=== PATIENT | male | born 1960 | race Caucasian/White ===

== ENCOUNTER 2019-04-15 18:50 | Emergency (ER) | payer OTHER ==
--- OUTSIDE RECORDS SUMMARY | 2019-04-15 18:59 | XMS REPORT | Continuity of Care Document ---
:1960 External Reference #:[id number] Author Name Tanner Lewis M.D. (transmitted by agent of provider Lisa Smart) Address [address] [address] Care Team Providers Name Role Phone Elijah Haile MD - Family Medicine Care Team Information Physicist Astrophysics Mario Fernandez MD - Interventional Care Team Information Physicist Astrophysics [phone] Cardiology Problems Active Problems Provider Date Coronary arteriosclerosis Tanner Lewis M.D. Onset: 07/12/2011 Chest pain Tanner Lewis M.D. Onset: 07/12/2011 Pure hypercholesterolemia Tanner Lewis M.D. Onset: 07/12/2011 Coronary arteriosclerosis Tanner Lewis M.D. Onset: 07/12/2011 Gastroesophageal reflux disease Tanner Lewis M.D. Onset: 05/10/2013 Pure hypercholesterolemia Tanner Lewis M.D. Onset: 03/05/2015 Carpal tunnel syndrome of right wrist [facility] [place] Onset: 01/02/2016 Snoring Kaylee Gao DNP, RN, Onset: 11/03/2016 [facility] Malaise and fatigue Kaylee Gao DNP, RN, Onset: 11/03/2016 [facility] Social History Type Date Description Comments Sex Unknown Tobacco Use Start: Unknown End: Former Cigarette Smoker Unknown Smoking Status Reviewed: 03/26/19 Former Cigarette Smoker ETOH Use Occasionally consumes beer Tobacco Use Start: Unknown End: Patient is a former quit in 1984, Unknown smoker smoked for 13 years 1 ppd Recreational Drug Use Denies Drug Use Exercise Type/Frequency Exercises sporadically Allergies, Adverse Reactions, Alerts Active Allergies Reaction Severity Comments Date Vytorin fatigue, muscle aches 04/15/2011 Niaspan flushing 04/15/2011 Lipitor fatigue, muscle aches. 04/15/2011 Tolerates low dose Keystone whole kernel corn 05/10/2013 Augmentin Nausea and Vomiting, per patient 04/30/2015 diarrhea, headache Rosuvastatin Calcium fatigue and muscle 07/12/2016 aches Medications Active Medications SIG Qnty Indications Ordering Date Provider Ranolazine ER 1 by mouth twice a 60tabs R07.9 Tanner Stein 03/26/2019 1000mg day Gildardo Lewis Tablets ER 12HR Amlodipine Besylate 1 by mouth every 90tabs Tanner Stein 08/08/2018 day Gildadro Lewis 2.5mg Tablets Methotrexate take 7 tablets by 90tabs Everardo Orourke, 05/22/2018 2.5mg mouth once weekly ELECTROTHERAPIST Tablets on Folic Acid take 2 on the day 180tabs Gilson Gonzales, 03/30/2018 1mg you take M.DKelechi Tablets methotrexate and 2 on the day after, otherwise take one capsule/tablet daily by mouth Repgabbi Javier sc [id number] 2ml Tanner Stein 02/01/2018 Gildardo Lewis 140mg/ml Solution Auto-Inject Nitroglycerin 1 tab by mouth sl 25tabs I25.118 Tanner Stein 02/11/2016 0.4mg as needed x 3 every Gildardo Lewis Tablets Sub 5 minutes Isosorbide 1 by mouth once 90tabs Tanner Stein 08/25/2015 Mononitrate ER daily Gildardo Lewis 60mg Tablets ER 24HR Aspir-81 1 by mouth every Tanner Stein 05/10/2013 81mg Tablets day Gildardo Lewis DR Levoerika 1 po qd 90tabs Unknown 125mcg Tablets Clobetasol topical qd prn 30g Unknown Propionate 0.05% Ointment Naproxen prn 60tabs Unknown 250mg Tablets Escitalopram Oxalate 1 1/2 tab po qd Unknown 10mg Tablets Alprazolam one by mouth up to Unknown 0.25mg three times daily Tablets as needed for anxiety Coq10 1 by mouth every Unknown 200mg Capsules day History Medications Ranexa 1 by mouth twice 60tabs R07.9 Lee SKelechi Jo, 11/03/2018 - 500mg a day DO FACC 03/26/2019 Tablets ER 12HR Medications Administered in Office Medication SIG Qnty Indications Ordering Provider Date Depomedrol 40MG Michael Canas M.D. 06/11/2015 Injection Technetium TC 99M Lee MahmoodKelechi Jo, DO LOCATED [facility]IN [facility] 05/27/2015 Tetrofosmin, Per Unit Dose Up To 40 Millicuries Injection Immunizations Description No Information Available Vital Signs Date Vital Result Comment 03/26/2019 2:48pm Height 72 inches 6'0" Weight 168.00 lb with boots Heart Rate 58 /min BP Systolic Sitting 130 mmHg Rue reg cuff BP Diastolic Sitting 82 mmHg Rue reg cuff BP Systolic Standing 128 mmHg Rue reg cuff BP Diastolic Standing 80 mmHg Rue reg cuff Respiratory Rate 18 /min BMI (Body Mass Index) 22.8 kg/m2 Ejection Fraction 55-60% ECHO 11/20/2018 11/03/2018 1:14pm Height 72 inches 6'0" Weight 170.00 lb with shoes Heart Rate 64 /min BP Systolic Sitting 118 mmHg Lue, sitting BP Diastolic Sitting 74 mmHg Lue, sitting BMI (Body Mass Index) 23.1 kg/m2 Ejection Fraction 55%-60% echo 03/27/10 Results Test Acquired Date Facility Test Result H/L Range Note Lipid Panel - 03/26/2019 [facility] Creatine <pending> [facility] [address] Kinase(CK) [place] [address] [phone] Laboratory test 02/20/2019 [facility] Erythrocyte Sed 3 mm/Hr Normal 0-[address] Rate [place], [place] [id number] [phone] C Reactive Protein 9.10 mg/L High <8.01 CBC W/Auto 02/20/2019 [facility] White Blood 6.1 10^3/uL Normal 3.5-10.[address] [place] [address] [phone] Red Blood Count 4.47 10^6/uL Normal 4.18-5.48 Hemoglobin 14.6 g/dL Normal 14.0-18.0 Hematocrit 42 % Normal 42-52 Mean Corpuscular Volume 94 fL Normal 80-94 Mean Corpuscular Hemoglobin 33 pg High 27-31 Mean Corpuscular HGB Conc 35 g/dL Normal 31-36 Red Cell Distribution Width 15 % Normal 10-15 Platelet Count 214 10^3/uL Normal 150-450 Mean Platelet Volume 8.5 fL Normal 7.4-10.4 Abs Neutrophils 3.9 10^3/uL Normal 1.5-7.7 Abs Lymphocytes 1.4 10^3/uL Normal 1.0-4.8 Abs Monocytes 0.6 10^3/uL Normal 0-0.8 Abs Eosinophils 0.1 10^3/uL Normal 0-0.6 Abs Basophils 0.0 10^3/uL Normal 0-0.2 Abs Nucleated RBC 0.0 10^3/uL Granulocyte % 63.9 % Lymphocyte % 23.3 % Monocyte % 10.4 % Eosinophil % 1.7 % Basophil % 0.7 % Nucleated Red Blood Cells % 0.1 CMP Panel 02/20/2019 [facility] Sodium 141 mmol/L Normal 135- [address] [place] [address] [phone] Potassium 4.1 mmol/L Normal 3.5-5.0 Chloride 105 mmol/L Normal 101-111 Co2 Carbon Dioxide 31 mmol/L Normal 22-32 Anion Gap 5 mmol/L Normal 2-11 Glucose 86 mg/dL Normal 70-100 Blood Urea Nitrogen 13 mg/dL Normal 6-24 Creatinine 1.08 mg/dL Normal 0.67-1.17 BUN/Creatinine Ratio 12.0 Normal 8-20 Calcium 9.3 mg/dL Normal 8.6-10.3 Total Protein 6.5 g/dL Normal 6.4-8.9 Albumin 4.0 g/dL Normal 3.2-5.2 Globulin 2.5 g/dL Normal 2-4 Albumin/Globulin Ratio 1.6 Normal 1-3 Total Bilirubin 0.50 mg/dL Normal 0.2-1.0 Alkaline Phosphatase 64 U/L Normal 34-104 Alt 39 U/L Normal 7-52 Ast 32 U/L Normal 13-39 Egfr Non- 70.0 >60 Egfr 84.7 >60 1 Basic Metabolic 12/01/2018 [facility] Sodium 142 mmol/L Normal 135-[address] [place] [address] [phone] Potassium 4.1 mmol/L Normal 3.5-5.0 Chloride 105 mmol/L Normal 101-111 Co2 Carbon Dioxide 30 mmol/L Normal 22-32 Anion Gap 7 mmol/L Normal 2-11 Glucose 60 mg/dL Low 70-100 Blood Urea Nitrogen 15 mg/dL Normal 6-24 Creatinine 1.13 mg/dL Normal 0.67-1.17 BUN/Creatinine Ratio 13.3 Normal 8-20 Calcium 9.3 mg/dL Normal 8.6-10.3 Egfr Non- 66.4 >60 Egfr 80.4 >60 2 Inr/Protime 12/01/2018 [facility] Inr 1.02 Normal 0.82-1.[address] [place] [address] [phone] CBC Auto Diff 12/01/2018 [facility] White Blood 4.2 Normal 3.5 -10.[address] Count 10^3/[place] [address] [phone] Red Blood Count 4.96 10^6/uL Normal 4.18-5.48 Hemoglobin 15.6 g/dL Normal 14.0-18.0 Hematocrit 46 % Normal 42-52 Mean Corpuscular Volume 94 fL Normal 80-94 Mean Corpuscular Hemoglobin 31 pg Normal 27-31 Mean Corpuscular HGB Conc 34 g/dL Normal 31-36 Red Cell Distribution Width 14 % Normal 10-15 Platelet Count 168 10^3/uL Normal 150-450 Mean Platelet Volume 9.0 fL Normal 7.4-10.4 Abs Neutrophils 2.1 10^3/uL Normal 1.5-7.7 Abs Lymphocytes 1.3 10^3/uL Normal 1.0-4.8 Abs Monocytes 0.6 10^3/uL Normal 0-0.8 Abs Eosinophils 0.2 10^3/uL Normal 0-0.6 Abs Basophils 0.1 10^3/uL Normal 0-0.2 Abs Nucleated RBC 0.0 10^3/uL Granulocyte % 49.2 % Lymphocyte % 30.1 % Monocyte % 15.1 % Eosinophil % 3.6 % Basophil % 2.0 % Nucleated Red Blood Cells % 1.0 Cath Panel 12/01/2018 [facility] Partial 20.2 Low 26.0-38.[address] [place] [address] PTT [phone] Laboratory 10/13/2018 [facility] Erythrocyte 0 mm/Hr Normal 0- 19 5 test finding [address] [place] [place] [address] [phone] C Reactive Protein 8.41 mg/L High <8.01 6 CBC Auto 10/13/2018 [facility] White Blood 4.7 10^3/uL Normal 3.5-10.[address] [place] [address] [phone] Red Blood Count 4.81 10^6/uL Normal 4.18-5.48 Hemoglobin 15.5 g/dL Normal 14.0-18.0 Hematocrit 45 % Normal 42-52 Mean Corpuscular Volume 94 fL Normal 80-94 Mean Corpuscular Hemoglobin 32 pg High 27-31 Mean Corpuscular HGB Conc 34 g/dL Normal 31-36 Red Cell Distribution Width 15 % Normal 10-15 Platelet Count 154 10^3/uL Normal 150-450 Mean Platelet Volume 9.3 fL Normal 7.4-10.4 Abs Neutrophils 2.6 10^3/uL Normal 1.5-7.7 Abs Lymphocytes 1.4 10^3/uL Normal 1.0-4.8 Abs Monocytes 0.5 10^3/uL Normal 0-0.8 Abs Eosinophils 0.1 10^3/uL Normal 0-0.6 Abs Basophils 0.0 10^3/uL Normal 0-0.2 Abs Nucleated RBC 0.0 10^3/uL Granulocyte % 56.8 % Lymphocyte % 29.1 % Monocyte % 10.7 % Eosinophil % 2.7 % Basophil % 0.7 % Nucleated Red Blood Cells % 0.0 Comp Metabolic 10/13/2018 [facility] Sodium 140 mmol/L Normal 135-[address] [place] [address] [phone] Potassium 4.6 mmol/L Normal 3.5-5.0 Chloride 107 mmol/L Normal 101-111 Co2 Carbon Dioxide 33 mmol/L High 22-32 Glucose 92 mg/dL Normal 70-100 Blood Urea Nitrogen 16 mg/dL Normal 6-24 Creatinine 1.04 mg/dL Normal 0.67-1.17 BUN/Creatinine Ratio 15.4 Normal 8-20 Calcium 9.2 mg/dL Normal 8.6-10.3 Total Protein 6.4 g/dL Normal 6.4-8.9 Albumin 4.2 g/dL Normal 3.2-5.2 Globulin 2.2 g/dL Normal 2-4 Albumin/Globulin Ratio 1.9 Normal 1-3 Total Bilirubin 0.70 mg/dL Normal 0.2-1.0 Alkaline Phosphatase 63 U/L Normal 34-104 Alt 32 U/L Normal 7-52 Ast 30 U/L Normal 13-39 Egfr Non- 73.1 >60 Egfr 88.4 >60 7 Lipid Panel - 10/13/2018 [facility] Creatine 80 U/L Normal 10- 223 [address] [address] Kinase(CK) [place] [address] [phone] Lipid Profile 10/13/2018 [facility] Triglycerides 112 9 (Trig/Chol/HD [address] mg/dL L) [place] [address] [phone] Cholesterol 90 mg/dL 10 HDL Cholesterol 37.1 mg/dL 11 LDL Cholesterol 31 mg/dL 12 1 Because ethnic data is not always readily available, this report includes an eGFR for both -Americans and non- Americans. The National Kidney Disease Education Program (NKDEP) does not endorse the use of the MDRD equation for patients that are not between the ages of 18 and 70, are , have extremes of body size, muscle mass, or nutritional status, or are non- or non-. According to the National Kidney Foundation, irrespective of diagnosis, the stage of the disease is based on the level of kidney function: Stage Description GFR(mL/min/1.73 m(2)) 1 Kidney damage with normal or decreased GFR 90 2 Kidney damage with mild decrease in GFR 60-89 3 Moderate decrease in GFR 30-59 4 Severe decrease in GFR 15-29 5 Kidney failure <15 (or dialysis) 2 Because ethnic data is not always readily available, this report includes an eGFR for both -Americans and non- Americans. The National Kidney Disease Education Program (NKDEP) does not endorse the use of the MDRD equation for patients that are not between the ages of 18 and 70, are , have extremes of body size, muscle mass, or nutritional status, or are non- or non-. According to the National Kidney Foundation, irrespective of diagnosis, the stage of the disease is based on the level of kidney function: Stage Description GFR(mL/min/1.73 m(2)) 1 Kidney damage with normal or decreased GFR 90 2 Kidney damage with mild decrease in GFR 60-89 3 Moderate decrease in GFR 30-59 4 Severe decrease in GFR 15-29 5 Kidney failure <15 (or dialysis) 3 Standard intensity warfarin therapeutic range: 2.0-3.0 High intensity warfarin therapeutic range: 2.5-3.5 4 Copy Result to: ELIJAH HAILE ([id number]) 5 Please check labs 2 days before follow up 6 Please check labs 2 days before follow up 7 Because ethnic data is not always readily available, this report includes an eGFR for both -Americans and non- Americans. The National Kidney Disease Education Program (NKDEP) does not endorse the use of the MDRD equation for patients that are not between the ages of 18 and 70, are , have extremes of body size, muscle mass, or nutritional status, or are non- or non-. According to the National Kidney Foundation, irrespective of diagnosis, the stage of the disease is based on the level of kidney function: Stage Description GFR(mL/min/1.73 m(2)) 1 Kidney damage with normal or decreased GFR 90 2 Kidney damage with mild decrease in GFR 60-89 3 Moderate decrease in GFR 30-59 4 Severe decrease in GFR 15-29 5 Kidney failure <15 (or dialysis) 8 FASTING in 2 months 9 Desirable: <150 Borderline High: 150-199 High: 200-499 Very High: >500 10 Desirable: <200 Borderline High: 200-239 High: >239 11 Low: <40 Desirable: 40-60 High: >60 12 Desirable: <100 Near Optimal: 100-129 Borderline High: 130-159 High: 160-189 Very High: >189 Procedures Date Code Description Status 03/26/2019 79273 EKG Tracing & Interpretation Completed 11/20/2018 39495 ECHO Transthoracic, Real-Time 2D With Doppler And Color Completed Flow 11/20/2018 91329 ECHO Transthoracic, Real-Time 2D With Doppler And Color Completed Flow 11/03/2018 67687 EKG Tracing & Interpretation Completed Medical Devices Description No Information Available Encounters Type Date Location Provider Dx Diagnosis Office Visit 11/03/2018 [facility] Tanner Stein I25.10 Athscl heart 1:20p Gildardo Lewis disease of mi'kmaq coronary artery w/o ang pctrs E78.5 Hyperlipidemia, unspecified R07.9 Chest pain, unspecified I49.5 Sick sinus syndrome Office Visit 10/17/2018 [facility] L40.50 Arthropathic 10:00a [facility] Satya Gonzales M.D. psoriasis, unspecified Z79.899 Other predatory animal exterminator (current) drug therapy M17.12 Unilateral primary osteoarthritis, left knee L40.9 Psoriasis, unspecified Assessments Date Code Description Provider 03/26/2019 E78.5 Hyperlipidemia Tanner Lewis M.D. 03/26/2019 R07.9 Chest pain Tanner Lewis M.D. 03/26/2019 I25.10 Coronary atherosclerosis Tanner Lewis M.D. 03/26/2019 R00.1 Bradycardia, unspecified Tanner Lewis M.D. 11/20/2018 R07.9 Chest pain, unspecified Tanner Lewis M.D. 11/20/2018 R07.9 Chest pain, unspecified [place] [facility] Schedule 11/03/2018 I25.10 Coronary atherosclerosis Tanner Lewis M.D. 11/03/2018 E78.5 Hyperlipidemia Tanner Lewis M.D. 11/03/2018 R07.9 Chest pain Tanner Lewis M.D. 11/03/2018 I49.5 Sick sinus syndrome Tanner Lewis M.D. 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 10/17/2018 Z79.899 Other predatory animal exterminator (current) drug therapy Gilson Gonzales M.D. 10/17/2018 M17.12 Unilateral primary osteoarthritis, left Gilson Gonzales M.D. knee 10/17/2018 L40.9 Psoriasis, unspecified Gilson Gonzales M.D. Plan of Treatment Future Appointment(s):04/06/2019 8:30 am - Nurse Visit cc at [facility]04/05/2019 10:00 am - Nurse Visit cc at [facility]04/16/2019 11 :20 am - Gilson Gonzales M.D. at [facility]03/26/2019 - Tanner Lewis M.D.E78.5 HyperlipidemiaFollow up:ov 4 mR07.9 Chest painNew Medication:Ranolazine ER 1000 mg - 1 by mouth twice a dayI25.10 Coronary bicitavsimfcrbvW38.1 Bradycardia, unspecifiedNew Orders:Holter Monitor, Ordered : 03/26/19 Functional Status Description No Information Available Mental Status Description No Information Available Referrals Refer to Reason for Referral Status Appt Date Vega Neri MD last cath 2014. progressive angina and Sent 2018 fatigue despite medical rx. recent stress test with anginal symptoms and fixed inferior defect. please perform cardiac cath for possible progression of known cad. APPT with Dr Fernandez for cath [address] [place] [address] [phone] Vega Neri MD please perform stress nuclear for recurrent Sent chest pain, known cad [address] [place] [address] [phone]
--- NOTE | 2019-04-15 19:44 | ED ---
Bite Injury/Animal - HPI Summary HPI Summary: 59-year-old male presents with left hand laceration today. He states that he was breaking up a dogfight in his house. He has lacerations to the left ring finger that continues to bleed. He has other superficial lacerations of bilateral hands. He states his dogs immunizations are up to date. His tetanus is up-to-date. Has history of heart issues. He is not on any blood thinners. He is not diabetic. Has full range of motion his finger. - History of Current Complaint Chief Complaint: EDAnimalBite Stated Complaint: DOG BITE ON LEFT RING FINGER Time Seen by Provider: 04/15/19 19:06 Pain Intensity: 0 - Allergies/Home Medications Allergies/Adverse Reactions: Allergies Allergy/AdvReac Type Severity Reaction Status Date / Time MS Amoxicillin Allergy N/V & Verified 04/15/19 18:54 [From Augmentin] DIARRHEA MS Atorvastatin Allergy MUSCLE Verified 04/15/19 18:54 [From Lipitor] ACHES MS Clavulanic Acid Allergy N/V & Verified 04/15/19 18:54 [From Augmentin] DIARRHEA MS Ezetimibe [From Vytorin] AdvReac Intermediate Muscle Ache Verified 04/15/19 18:54 MS Simvastatin [From Vytorin] AdvReac Intermediate Muscle Ache Verified 18:54 MS Niacin [From Niaspan] AdvReac Flushing Verified 04/15/19 18:54 RAW CORN Allergy GI Upset Uncoded 04/05/16 11:36 Home Medications: Home Medications Levothyroxine Sodium [Levothyroxine] 125 mcg PO QPM 05/28/13 [History Confirmed 04/05/16] Clobetasol 0.05% OINT* 1 applic TOPICAL DAILY PRN 06/18/13 [History Confirmed ] Nitroglycerin TAB 0.4 MG* 0.4 mg SL Q5M PRN 06/18/13 [History Confirmed 04/05/16 ] Aspirin [Aspir-81] 81 mg PO BEDTIME 11/09/13 [History Confirmed 04/05/16] ALPRAZolam TAB* [Xanax TAB*] 0.25 mg PO BID PRN 04/08/15 [History Confirmed ] Escitalopram Oxalate [Lexapro] 10 mg PO BEDTIME 04/08/15 [History Confirmed ] amLODIPine TAB* [Norvasc TAB*] 10 mg PO BEDTIME 04/08/15 [History Confirmed ] Isosorbide Mononitrate ER TAB* [Imdur ER TAB*] 60 mg PO BID 12/30/15 [History Confirmed 04/05/16] DOXYcycline CAP(*) [DOXYcycline 100MG CAP(*)] 100 mg PO BID #9 cap 04/15/19 [Rx] PMH/Surg Hx/FS Hx/Imm Hx Endocrine/Hematology History: Reports: Hx Thyroid Disease - HYPOTHYROID Denies: Hx Diabetes Cardiovascular History: Reports: Hx Angina, Hx Coronary Artery Disease - [address], Hx Hypercholesterolemia, Hx Hypertension, Hx Peripheral Vascular Disease, Other Cardiovascular Problems/Disorders - SEE DR. MCKEON FOR Denies: Hx Pacemaker/ICD Respiratory History: Denies: Hx Asthma GI History: Reports: Hx Gastroesophageal Reflux Disease - ON MEDICATION FOR, Other GI Disorders - HEPATITIS/ AGE 5 History: Denies: Hx Renal Disease Musculoskeletal History: Reports: Hx Arthritis Sensory History: Reports: Hx Contacts or Glasses - READING GLASSES Denies: Hx Hearing Aid Opthamlomology History: Reports: Hx Contacts or Glasses - READING GLASSES Neurological History: Reports: Other Neuro Impairments/Disorders - PAIN CLINIC PT. Psychiatric History: Reports: Hx Anxiety - NO MEDICATION FOR, Hx Depression - NO MEDICATION FOR Denies: Hx Panic Disorder - Surgical History Surgery Procedure, Year, and Place: 2009 [facility] CARDIAC STENT [place].2009 [facility] CARDIAC STENT [place] [facility] PER MANUFACTURERS RECOMENDATIONS SAFE FOR 1.5 TO 3T MR CONDITIONAL. ACDF-CERVICAL DISCECTOMY 2012 [place]. LEFT KNEE ARTHRO 35 YRS AGO. Rt CARPAL TUNNEL Hx Anesthesia Reactions: Yes - LONG TIME TO WAKE UP. N/V Infectious Disease History: No Infectious Disease History: Reports: Hx Hepatitis - A VERY YOUNG CHILD - NO PROBLEMS NOW Denies: Traveled Outside the [place] in Last 30 Days - Family History Known Family History: Positive: Non-Contributory - Social History Alcohol Use: None Substance Use Type: Reports: None Smoking Status (MU): Never Smoked Tobacco Type: Cigarettes Amount Used/How Often: 1 PPD X 13 YEARS Length of Time of Smoking/Using Tobacco: 13 YEARS Have You Smoked in the Last Year: No Review of Systems Negative: Fever Negative: Chest Pain Negative: Shortness Of Breath Positive: Other - lacerations All Other Systems Reviewed And Are Negative: Yes Physical Exam Triage Information Reviewed: Yes Vital Signs On Initial Exam: Initial Vitals Temp Pulse Resp BP Pulse Ox 98.6 F 75 16 136/87 95 04/15/19 18:51 04/15/19 18:51 04/15/19 18:51 04/15/19 18:51 04/15/19 18:51 Vital Signs Reviewed: Yes Appearance: Positive: Well-Appearing Skin: Positive: Skin Color Reflects Adequate Perfusion, Dry, Other - mutiple superficial lacerations to bilateral hands, 2cm irregular laceration to left ring finger Eyes: Positive: Normal, Conjunctiva Clear ENT: Positive: Pharynx normal Respiratory/Lung Sounds: Positive: Clear to Auscultation, Breath Sounds Present Cardiovascular: Positive: Normal, RRR Musculoskeletal: Positive: Strength/ROM Intact - left hand, Other - capillary refill<2 secs Neurological: Positive: Normal Psychiatric: Positive: Normal Procedures - Sedation Patient Received Moderate/Deep Sedation with Procedure: No - Laceration/Wound Repair 1 Location: Other - left hand Description: Irregular Anesthesia: Local, 1.0% Length, Depth and Shape: 2cm irregular with flap Betadine Prep?: No Irrigated w/ Saline (ccs): 500 Closure: Single Layer Suture Type: Prolene Number of Sutures: 4 Diagnostics - Vital Signs Vital Signs Temp Pulse Resp BP Pulse Ox 04/15/19 18:51 98.6 F 75 16 136/87 95 - Laboratory Lab Statement: Any lab studies that have been ordered have been reviewed, and results considered in the medical decision making process. Bite Injury Course/Dx - Course Course Of Treatment: 59-year-old male presents with left hand laceration today. He states that he was breaking up a dogfight in his house. He has lacerations to the left ring finger that continues to bleed. He has other superficial lacerations of bilateral hands. He states his dogs immunizations are up to date. His tetanus is up-to-date. Has history of heart issues. He is not on any blood thinners. He is not diabetic. Has full range of motion his finger. On exam has 2 cm irregular laceration to left index finger by cleaning and placed 4 sutures. Cleaned other lacerations. Will place on doxycycline. Patient understands and agrees the plan. - Diagnoses Differential Diagnosis/HQI/PQRI: Positive: Laceration, Puncture, Rabies Exposure Provider Diagnosis: Laceration of left hand, Dog bite Discharge ED - Sign-Out/Discharge Documenting (check all that apply): Patient Departure - Discharge Plan Condition: Good Disposition: HOME Prescriptions: DOXYcycline CAP(*) [DOXYcycline 100MG CAP(*)] 100 mg PO BID #9 cap Patient Education Materials: Animal Bite (ED), Care For Your Stitches (ED) Referrals: Clay Peña MD [Primary Care Provider] - Additional Instructions: Wash area with soap and water twice a day Place Neosporin on area Take doxycycline twice a day for 5 days follow up with primary within 5 days suture removal in 8-10 days Return to ED if develop any sign of infection such as spreading redness, pus, or fever, or any new or worsening symptoms - Billing Disposition and Condition Condition: GOOD Disposition: Home
[2019-04-15] MEDS ORDERED: DOXYcycline CAP(*) 100 MG PO ONE (20:29)
[2019-04-15 20:51] VITALS: BP 138/91
== END 2019-04-15 20:50 | disposition home or self-care (01) ==
LOC: ED 18:50
DX: S61.412A Laceration without foreign body of left hand, initial encounter (principal); W54.0XXA Bitten by dog, initial encounter; Y93.9 Activity, unspecified; E03.9 Hypothyroidism, unspecified; I25.10 Atherosclerotic heart disease of native coronary artery without angina pectoris; E78.00 Pure hypercholesterolemia, unspecified; I10 Essential (primary) hypertension; K21.9 Gastro-esophageal reflux disease without esophagitis; I73.9 Peripheral vascular disease, unspecified; F41.9 Anxiety disorder, unspecified; Z95.5 Presence of coronary angioplasty implant and graft; Z88.0 Allergy status to penicillin
CPT/HCPCS: 12001; 99282; A9270-GY